=== PATIENT | female | born 2000 | race Caucasian/White ===

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

== ENCOUNTER 2020-10-24 18:32 | Emergency (ER) | payer MEDICAID, SELFPAY ==
[2020-10-24 19:21] VITALS: BP 125/85; PULSE 74; RESP 12; O2SAT 99
--- NOTE | 2020-10-24 19:39 | ED.GENADUL_ITS ---
Discharge Plan Disposition Patient Disposition: HOME Condition: Stable Discharge Details Clinical Impression: Pain, dental Primary Care Provider: Julio Hitchcock ED Provider: Lenin Marquez Home Meds and New Rx's Prescriptions: New penicillin V potassium 500 mg tablet 500 mg PO QID Qty: 28 RF: 0 Continued Nexplanon 68 mg implant 1 implant SBD ONCE RF: 0 fluoxetine 20 mg capsule 20 mg PO DAILY Qty: 60 RF: 2 fluoxetine 10 mg capsule 10 mg PO DAILY Qty: 60 RF: 2 albuterol sulfate [ProAir HFA] 90 mcg/actuation HFA aerosol inhaler 2 puff Inhalation Q4H PRN Qty: 1 RF: 2 albuterol sulfate 2.5 mg /3 mL (0.083 %) solution for nebulization 2.5 mg Inhalation Q4H PRN Qty: 1 RF: 2 Discharge Instructions Additional Instructions: follow up with a dentist as soon as possible you can take 1000mg tylenol and 600mg ibuprofen every 6 hours for pain as needed if you feel more ill, have fevers, or inability to swallow liquids return to the emergency department Medical Decision Making 19 yo female who states last April she had a right upper tooth infection treated with penicillin and did not follow up for tooth extraction with her dentist comes in with 2 days of recurrent upper right posterior molar pain. Denies fevers or difficulty swallowing. She is speaking normally, no submandibular swelling, normal oropharynx with midline uvula, no pain over hyoid or restricted neck movements. She has an eroded posterior upper right tooth that is tender when it is touched. No swelling to suggest abscess currently. Suspect pulpitis and will start on penicillin and have her follow up with dentist. No findings to suggest ludwigs, retropharyngeal abscess, peritonsillar abscess. Discussed return precautions and she understood them and agrees with the plan Differential Diagnosis Differential Diagnosis: caries, abscess, pulpitis HPI General Mode of arrival: ambulatory . Date/Time Provider Initiated Documentation: 10/24/20 19:38 . Limitations to Documentation: no limitations . Information obtained by: patient . History of Present Illness 19 year old F presents to the emergency department with the chief complaint of tooth pain, described as moderate, Quality is described as aching, and is localized to the mouth. Patient reports no radiation. Patient started experiencing this day(s) (2) and it has been constant. No relieving factors improve symptom(s), No exacerbating factors reported . Patient notes no other symptoms.. Patient did receive the following treatments prior to arrival, none Related Data Home Medications Medication Instructions Recorded Confirmed albuterol sulfate 2.5 mg INHALATION Q4H PRN #1 ml 05/09/18 10/24/20 albuterol sulfate 90 mcg/actuation 2 puff INHALATION Q4H PRN #1 05/09/18 10/24/20 aerosol inhaler inhaler etonogestrel 68 mg subdermal 1 implant SBD ONCE 10/15/18 10/24/20 implant fluoxetine 10 mg capsule 10 mg PO DAILY #60 cap 09/21/19 10/24/20 fluoxetine 20 mg capsule 20 mg PO DAILY #60 cap 09/21/19 10/24/20 penicillin V potassium 500 mg PO QID #28 tab 10/24/20 Previous Rx's Medication Instructions Recorded fluoxetine 10 mg capsule 10 mg PO DAILY #60 cap 09/21/19 fluoxetine 20 mg capsule 20 mg PO DAILY #60 cap 09/21/19 penicillin V potassium 500 mg PO QID #28 tab 10/24/20 Allergies Allergy/AdvReac Type Severity Reaction Status Date / Time No Known Allergies Allergy Verified 10/24/20 19:25 General Stated Complaint: DentalOral JULIANNE: 4 Review of Systems All systems reviewed & are unremarkable except as noted in HPI and below Constitutional Constitutional: Denies chills, Denies fever(s) and Denies weakness Cardiovascular Cardiovascular: Denies chest pain and Denies dyspnea Respiratory Respiratory: Denies cough and Denies dyspnea Gastrointestinal Gastrointestinal: Denies abdominal pain, Denies nausea and Denies vomiting Musculoskeletal Musculoskeletal: Denies joint swelling Neurologic Neurologic: Denies weakness PENDING SALE TO [facility] Medical History (Updated 10/24/20 @ 19:40 by Lenin Marquez MD) Fracture of fifth finger, left, closed Intermittent asthma triggers - exercise Migraine with aura Family History Other Essential hypertension paternal H/O blood clots PGM-from abd- caused stroke Diabetes PGM Heart disease paternal Hyperlipidemia paternal Mental disorder paternal-anxiety/depression Stroke PGM Asthma PGF Mother Migraines Mental disorder depression/anxiety Asthma outgrown Father Essential hypertension Substance abuse Heart disease Hyperlipidemia Mental disorder Depression/anxiety Myocardial infarction Asthma Social History Smoking/Tobacco Use Status: Never Smoking risk assessment performed?: Yes Alcohol Intake: never Drug use: Never Substance use type: does not use Adopted: No Foster care: No Do you feel safe at home: Yes Do you feel safe in your relationship?: Yes Female Reproductive History Menstrual control method: implanted (Nexplanon inserted by [employer] TIMMONS PBS=[id number] EXP=02/05/2021) Exam Const General: no acute distress Orientation: alert HENMT Head: normal to inspection Ears: external ears normal General nose exam: external nose normal Mouth: moist mucous membranes Eyes General: appearance normal, both eyes and all related structures Neck Neck: normal visual inspection Resp Effort & Inspection: normal respiratory effort and able to speak in complete sentences Cardio Rate: regular rate Skin General skin exam: no rashes or lesions noted Neuro General: patient alert and patient oriented x3 Extrem General: normal to inspection Psych Mental Status: mental status grossly normal Course Vital Signs Vital signs: Vital Signs Pulse 74 10/24/20 19:21 Respiratory Rate 12 10/24/20 19:21 Blood Pressure 125/85 10/24/20 19:21 Pulse Oximetry 99 10/24/20 19:21 Pulse 74 10/24/20 19:21 Respiratory Rate 12 10/24/20 19:21 Respiratory Effort Non-Labored 10/24/20 19:23 Blood Pressure 125/85 10/24/20 19:21 Blood Pressure Position Sitting 10/24/20 19:21 Pulse Oximetry 99 10/24/20 19:21 Oxygen Delivery Method Room Air 10/24/20 19:21 Oxygen Flow Rate 0 10/24/20 19:21 Pain Level 8 10/24/20 19:25
[2020-10-24] MEDS: Penicillin V POTASSIUM 500 MG TAB PO (19:44)
[2020-10-24] MEDS: Acetaminophen 500 MG TAB 1000 MG PO (19:44)
== END 2020-10-24 19:45 | disposition home or self-care (01) ==
PROVIDERS: Emergency Provider Emergency Medicine; PCP Pediatrics
DX: K08.89 Other specified disorders of teeth and supporting structures (principal)
CPT/HCPCS: 99283

== ENCOUNTER 2021-05-16 05:42 | Emergency (ER) | payer MEDICAID, SELFPAY ==
[2021-05-16 05:47] VITALS: BP 137/102; PULSE 99; RESP 18; TEMP 36.4; O2SAT 100
--- NOTE | 2021-05-16 06:10 | ED.GENADUL_ITS ---
Discharge Plan Disposition Patient Disposition: HOME Condition: Improving Discharge Details Clinical Impression: Dehydration Primary Care Provider: Chilango Corbett ED Provider: Kostas Kate Home Meds and New Rx's Prescriptions: Continued Nexplanon 68 mg implant 1 implant SBD ONCE RF: 0 fluoxetine 20 mg capsule 20 mg PO DAILY Qty: 60 RF: 2 fluoxetine 10 mg capsule 10 mg PO DAILY Qty: 60 RF: 2 albuterol sulfate [ProAir HFA] 90 mcg/actuation HFA aerosol inhaler 2 puff Inhalation Q4H PRN Qty: 1 RF: 2 albuterol sulfate 2.5 mg /3 mL (0.083 %) solution for nebulization 2.5 mg Inhalation Q4H PRN Qty: 1 RF: 2 fluconazole [Diflucan] 150 mg tablet 150 mg PO ONCE Qty: 2 RF: 0 No Action penicillin V potassium 500 mg tablet 500 mg PO QID Qty: 28 RF: 0 Discharge Instructions Instructions: Dehydration (ED) Additional Instructions: Continue small, frequent sips of fluids to maintain good hydration. Off work if needed today. Resume a bland diet and may progress as tolerated. Return to the emergency department for any acute concerns. Medical Decision Making 20-year-old female presents with abdominal cramps, loose watery stool began after she took 3 laxatives following 3 days of constipation. She had a significant crampy abdominal pain at home with associated subjective chills. She therefore presented to the ER. Patient is afebrile, has a resting pulse of 100 and a benign abdominal exam.. Differential diagnosis includes dehydration due to GI losses, bowel cramps. Patient IV access established, given fluid bolus and referred for screening labs and x-ray. Patient CBC is unremarkable, chemistries are reassuring but do note discrete anion gap of 11. BUN 12 creatinine 0.7. Urinalysis notes specific gravity greater than 1.03 and ketones present. Patient with dehydration and volume loss. Discussed with her ongoing home management. She is stable and appropriate for discharge home at this time. HPI General Mode of arrival: ambulatory . Date/Time Provider Initiated Documentation: 05/16/21 05:58 . Limitations to Documentation: no limitations . Information obtained by: patient and family . History of Present Illness 20 year old F presents to the emergency department with the chief complaint of Diarrhea, feels weak, crampy abdominal pain, described as moderate, and is localized to the abdomen. Patient reports no radiation. Patient started experiencing this hour(s) and it has been intermittent and now resolved. No relieving factors improve symptom(s), No exacerbating factors reported . Patient notes loss of appetite, malaise, nausea/vomiting and weakness. Patient did receive the following treatments prior to arrival, none Related Data Home Medications Medication Instructions Recorded Confirmed albuterol sulfate 2.5 mg INHALATION Q4H PRN #1 ml 05/09/18 10/24/20 albuterol sulfate 90 mcg/actuation 2 puff INHALATION Q4H PRN #1 05/09/18 05/16/21 aerosol inhaler inhaler etonogestrel 68 mg subdermal 1 implant SBD ONCE 10/15/18 05/16/21 implant fluoxetine 10 mg capsule 10 mg PO DAILY #60 cap 09/21/19 05/16/21 fluoxetine 20 mg capsule 20 mg PO DAILY #60 cap 09/21/19 05/16/21 penicillin V potassium 500 mg PO QID #28 tab 10/24/20 fluconazole 150 mg tablet 150 mg PO ONCE #2 tab 02/28/21 Previous Rx's Medication Instructions Recorded fluoxetine 10 mg capsule 10 mg PO DAILY #60 cap 09/21/19 fluoxetine 20 mg capsule 20 mg PO DAILY #60 cap 09/21/19 penicillin V potassium 500 mg PO QID #28 tab 10/24/20 fluconazole 150 mg tablet 150 mg PO ONCE #2 tab 02/28/21 Allergies Allergy/AdvReac Type Severity Reaction Status Date / Time No Known Allergies Allergy Verified 10/24/20 19:25 General Stated Complaint: Nausea/Vomit/Diar JULIANNE: 4 Review of Systems Narrative: [place] constipated over the weekend, took laxatives. Feels subjective chills. 8 systems reviewed and otherwise negative [facility] Active Problem List (Updated 05/16/21 @ 06:57 by Kostas Kate MD) Pain, dental (Acute) Dehydration (Acute) Excessive tearing (Chronic) Normal weight (Acute 11/10/14) Routine physical examination (Acute 02/12/12) Mild intermittent asthma, uncomplicated (Acute 08/21/16) Heart murmur (Acute 11/21/01) Headache (Acute 02/12/12) Encounter for Depo-Provera contraception (Acute 11/07/17) Asthma (Acute 02/03/13) Medical History (Updated 05/16/21 @ 06:57 by Kostas Kate MD) Fracture of fifth finger, left, closed Intermittent asthma triggers - exercise Migraine with aura Family History Other Essential hypertension paternal H/O blood clots PGM-from abd- caused stroke Diabetes PGM Heart disease paternal Hyperlipidemia paternal Mental disorder paternal-anxiety/depression Stroke PGM Asthma PGF Mother Migraines Mental disorder depression/anxiety Asthma outgrown Father Essential hypertension Substance abuse Heart disease Hyperlipidemia Mental disorder Depression/anxiety Myocardial infarction Asthma Social History Smoking/Tobacco Use Status: Never Smoking risk assessment performed?: Yes Alcohol Intake: never Drug use: Never Substance use type: does not use Adopted: No Foster care: No Do you feel safe at home: Yes Do you feel safe in your relationship?: Yes Female Reproductive History Menstrual control method: implanted (Nexplanon inserted by [employer] TIMMONS ULG=[id number] EXP=02/05/2021) Exam Narrative Exam Narrative: GEN: awake, alert, oriented 3. Pleasant, well groomed, interactive. HEAD: Normocephalic, atraumatic ENT: Mucous membranes dry, oropharynx unremarkable, External ear exam unremarkable EYES: PERRL, EOMI NECK: Full ROM, no BECKY, no menigismus CHEST/RESP: Nontender, clear to auscultation bilateral, no wheeze/rhonchi/rales CARDIOVASCULAR: Regular and tachycardic, no murmur, rub roddy. 2+ Rad pulse bilateral ABDOMEN: Soft, nontender, no mass. +Bowel sounds EXT: Full ROM, no edema, no rash Neuro: Grossly normal neurologic exam, conversant, interactive. Psych: Speech fluent, thoughts congruent, affect normal Course Vital Signs Vital signs: Vital Signs Temperature 36.4 C L 05/16/21 05:47 Pulse 99 H 05/16/21 05:47 Respiratory Rate 18 05/16/21 05:47 Blood Pressure 137/102 H 05/16/21 05:47 Pulse Oximetry 100 05/16/21 05:47 Temperature 36.4 C L 05/16/21 05:47 Temperature Source Tympanic 05/16/21 05:47 Pulse 99 H 05/16/21 05:47 Respiratory Rate 18 05/16/21 05:47 Respiratory Effort 05/16/21 05:53 Blood Pressure 137/102 H 05/16/21 05:47 Blood Pressure Position Sitting 05/16/21 05:47 Pulse Oximetry 100 05/16/21 05:47 Oxygen Delivery Method Room Air 05/16/21 05:47 Oxygen Flow Rate 0 05/16/21 05:47 Pain Level 0 05/16/21 05:47
--- NOTE | 2021-05-16 06:15 | DI.RAD_ITS ---
Exam(s) XR ABDOMEN FLAT UPRIGHT EXAM: XR ABDOMEN FLAT UPRIGHT CLINICAL HISTORY: abdominal pain, cramps TECHNIQUE: COMPARISON: No exams were available for comparison FINDINGS: Two views were obtained. No free intraperitoneal air seen. Bowel gas pattern is within normal limit s. No gross organomegaly. IMPRESSION: No evidence of acute process. RADIATION DOSE DELIVERED: Total DLP
[2021-05-16 06:29] LABS: Abs Immature Grans 0.04 10^3/uL (0.0-0.06); Absolute Basophil Count 0.02 10^3/uL (0.0-0.2); Absolute Eosinophil Count 0.01 10^3/uL (0.0-0.7); Absolute Lymphocyte Count 0.87 10^3/uL (1.2-3.4); Absolute Neutrophil Count 6.34 10^3/uL (1.2-6.7); Basophils % 0.3; Eosinophils % 0.1; HCT 45.9 % (36.0-46.0); HGB 14.8 g/dL (11.2-15.7); Immature Grans % 0.5; Lymphocytes % 10.9; MCH 28.9 pg (27.0-33.0); MCHC 32.2 % (32.0-36.0); MCV 89.6 fL (80-95); Monocytes % 8.8; Neutrophils % 79.4; Nucleated RBC 0 %; Platelet Count 240 10^3/uL (130-400); RBC 5.12 10^6/uL (3.93-5.22); RDW 11.9 % (11.7-14.6); RDW-SD 39.4 fL; WBC 7.98 10^3/uL (4.4-10.8)
[2021-05-16 06:29] LABS: Bilirubin Negative (Negative); Blood Small (Negative); Clarity Clear (Clear); Glucose Negative (Negative); Ketones 15 mg/dL (Negative); Leukocyte Esterase Negative (Negative); Nitrite Negative (Negative); Specific Gravity >= 1.030 (1.005-1.025); Urobilinogen 0.2 EU/dL (Up TO 0.2); pH 5.5 (5-8)
[2021-05-16] MEDS: Normal Saline 1,000 ML 1000 ML IV (06:30)
[2021-05-16 06:36] LABS: Epithelial Cells Many HPF (Negative); WBC 0-2 HPF (0-5)
[2021-05-16 06:37] LABS: Bacteria Moderate HPF (Negative); C & S Indicated? No/Sq. Contamination; Casts Negative LPF (Negative); Crystals Negative HPF (Negative); Mucus Trace (Negative)
[2021-05-16 06:40] LABS: ALT 39 U/L (14-59); AST 16 U/L (15-37); Albumin 3.8 g/dL (3.4-5.0); Alkaline Phosphatase 86 U/L (46-116); Anion Gap 11.3 mmol/L (3-11); BUN 12 mg/dL (7-18); Bilirubin, Total 0.4 mg/dL (0.2-1.0); CO2 22.7 mmol/L (21.0-32.0); CREATININE 0.7 mg/dL (0.55-1.02); Calcium 9.1 mg/dL (8.5-10.1); Chloride 103 mmol/L (98-107); Glucose 99 mg/dL (74-106); Magnesium 1.8 mg/dL (1.8-2.4); Potassium 4.1 mmol/L (3.5-5.1); Sodium 137 mmol/L (136-145); Total Protein 8.3 g/dL (6.4-8.2)
--- NOTE | 2021-05-16 06:55 | DI.VRAD_ITS ---
PROCEDURE INFORMATION: Exam: XR Abdomen Exam date and time: 05/16/2021 6:21 AM Age: 20 years old Clinical indication: Abdominal pain; Other: Cramps TECHNIQUE: Imaging protocol: XR of the abdomen. Views: 2 Views. Upright and supine views. COMPARISON: No relevant prior studies available. FINDINGS: Gastrointestinal tract: Normal. No bowel dilation. Intraperitoneal space: Normal. No free air. Bones/joints: Unremarkable for age. IMPRESSION: No acute findings. Dictated and Authenticated by: Kosta Norwood MD. Ordering:PHYLLIS Kenyon MD
[2021-05-16 07:25] VITALS: BP 115/72; PULSE 85; RESP 16; TEMP 36.4; O2SAT 100
== END 2021-05-16 07:24 | disposition home or self-care (01) ==
PROVIDERS: Emergency Provider Emergency Medicine; PCP Pediatrics
DX: E86.0 Dehydration (principal); R10.9 Unspecified abdominal pain
CPT/HCPCS: 80053; 81025; 96360; 96361; 99284; 74019; 81003; 81015; 83735; 85025; 99283

== ENCOUNTER 2021-08-09 19:39 | Emergency (ER) | payer MEDICAID, SELFPAY ==
[2021-08-09] VITALS (90 sets, daily range): BP systolic 98–108; BP diastolic 43–62; PULSE 76–110; RESP 11–35; TEMP 36.5; O2SAT 98–100
--- NOTE | 2021-08-09 19:45 | RT.EKG_ITS ---
APPROVED REPORT Exam: Resting ECG Reason for Exam: dizziness Patient Location: E HR:109 bpm ECG Measurements Heart Rate 109 AXIS MO 159 P 39 QRSd 80 QRS 88 QT 314 T 15 QTc 423 Conclusion Sinus tachycardia with irregular rate...V-rate 96-127, variation>10%. Sinus w/ rate variation. No STEMI. I have reviewed and interpreted ECG and agree with software generated interpretation.
[2021-08-09] MEDS: Normal Saline 1,000 ML 1000 ML IV (20:09)
[2021-08-09] MEDS: ACETAMINOPHEN 1,000 MG/100 ML BTL 400 MG IVPB (20:29)
[2021-08-09] MEDS: Ondansetron 4 MG/2 ML VIAL IVP (20:30)
[2021-08-09] MEDS: Ketorolac 30 MG/ML VIAL IVP (20:31)
[2021-08-09 20:38] LABS: Abs Immature Grans 0.04 10^3/uL (0.0-0.06); Absolute Basophil Count 0.03 10^3/uL (0.0-0.2); Absolute Lymphocyte Count 0.47 10^3/uL (1.2-3.4); Absolute Monocyte Count 0.89 10^3/uL (0.1-0.8); Basophils % 0.2; HCT 44.7 % (36.0-46.0); HGB 14.6 g/dL (11.2-15.7); Immature Grans % 0.3; MCHC 32.7 % (32.0-36.0); MCV 88.9 fL (80-95); MPV 9.8 fL (8.0-11.0); Monocytes % 5.6; Neutrophils % 90.9; Nucleated RBC 0 %; Platelet Count 292 10^3/uL (130-400); RBC 5.03 10^6/uL (3.93-5.22); RDW 11.9 % (11.7-14.6); RDW-SD 38.5 fL; WBC 15.81 10^3/uL (4.4-10.8)
[2021-08-09 20:39] LABS: Absolute Neutrophil Count 14.37 10^3/uL (1.2-6.7)
--- NOTE | 2021-08-09 20:39 | ED.GENADUL_ITS ---
Discharge Plan Disposition Patient Disposition: HOME Condition: Stable Discharge Details Clinical Impression: Abdominal pain, vomiting, and diarrhea Primary Care Provider: Alysha Leigh ED Provider: Noelle Weber Home Meds and New Rx's Prescriptions: Continued Nexplanon 68 mg implant 1 implant SBD ONCE 0RF fluoxetine 20 mg capsule 20 mg PO DAILY Qty: 60 2RF Rx Instructions: take one capsule once a day. may add fluoxetine 10 mg after 2 weeks if needed fluoxetine 10 mg capsule 10 mg PO DAILY Qty: 60 2RF Rx Instructions: take one capsule once a day along with 20 mg capsule albuterol sulfate [ProAir HFA] 90 mcg/actuation HFA aerosol inhaler 2 puff Inhalation Q4H PRN Qty: 1 2RF Rx Instructions: 2 puffs with spacer q4hr prn cough/wheeze albuterol sulfate 2.5 mg /3 mL (0.083 %) solution for nebulization 2.5 mg Inhalation Q4H PRN Qty: 90 0RF Rx Instructions: 1 vial via nebulizer q4 hrs prn cough/wheeze Discharge Instructions Instructions: Acute Nausea and Vomiting (ED), Acute Diarrhea (ED), Abdominal Pain (ED) Additional Instructions: Your lab work today is reassuring. Your white blood cell count was elevated which may be a stress response. It is reassuring that you have no fever and your symptoms have improved. Drink plenty of fluids and get plenty of rest. Take the Zofran as needed and directed for nausea and vomiting. Follow-up with your primary care doctor in 1 week. Return to the emergency department with any worsening or new concerning symptoms such as fever, persistent vomiting, worsening pain for reevaluation and for consideration for imaging at that time. You were tested for Covid today. Please quarantine until your result is available and if negative. Stand Alone Forms: PENDING COVID-19 TESTING Discharge Data Discharge Date/Time-TO BE ENTERED AT DEPARTURE: 08/09/21 23:00 Discharge Physician: Noelle Weber Medical Decision Making 20-year-old female presents with vomiting, diarrhea and abdominal pain since this morning. Heart rate elevated in the 110s. Blood pressure mildly low at 108/56. Patient had dry heaving upon arrival and was given a dose of Zofran IV. She denies any pain at present. She initially appeared in distress while dry heaving but now appears much more comfortable. Her abdomen is soft and nontender. Differential diagnosis includes gastroenteritis, UTI, electrolyte abnormality, dehydration, viral syndrome, Covid. As pt has vomiting and diarrhea, presentation does not appear c/w ovarian torsion. She has no abdominal pain and her abdomen is nontender, do not see indication for imaging and patient is agreeable as she does not want the radiation if possible. We will place an IV, bolus IV fluids, screening labs, urinalysis and give a dose of IV Tylenol, Toradol and reassess. Labs reviewed and note a white blood cell count of 15 which may be a stress response. No bands. Normal electrolytes. Anion gap minimally elevated at 11.4. Lipase normal. Patient reassessed and she states she feels much better. She was able to drink fluids and eat crackers and denies any nausea, pain or diarrhea. Patient is requesting to go home. She was given a Zofran bottle to go for home. Advised on the importance of drinking plenty of fluids and getting plenty of rest. Advised to follow up with the primary care doctor for re-evaluation. Usual and customary return precautions given prior to discharge. Medical Records Medical records reviewed: Yes I reviewed the patient's medical records. Lab Data Lab results reviewed: Yes I reviewed the patient's lab results. Labs: 08/09/21 21:50 Urine - Reflex from Ua Urine Culture - Final Gram Positive Rossi,Mixed Laboratory Tests Range/Units 08/09/21 08/09/21 08/09/21 20:30 20:30 20:33 WBC (4.4-10.8) 10^3/uL 15.81 H RBC (3.93-5.22) 10^6/uL 5.03 Hgb (11.2-15.7) g/dL 14.6 Hct (36.0-46.0) % 44.7 MCV (80-95) fL 88.9 MCH (27.0-33.0) pg 29.0 MCHC (32.0-36.0) % 32.7 RDW (11.7-14.6) % 11.9 Plt Count (130-400) 10^3/uL 292 MPV (8.0-11.0) fL 9.8 Immature Gran % 0.3 Neutrophils % 90.9 Lymphocytes % 3.0 Monocytes % 5.6 Eosinophils % 0.0 Basophils % 0.2 Nucleated RBC % % 0 Absolute Neutrophils (1.2-6.7) 10^3/uL 14.37 H Absolute Lymphocytes (1.2-3.4) 10^3/uL 0.47 L Absolute Monocytes (0.1-0.8) 10^3/uL 0.89 H Absolute Eosinophils (0.0-0.7) 10^3/uL 0.00 Absolute Basophils (0.0-0.2) 10^3/uL 0.03 Sodium (136-145) mmol/L 137 Potassium (3.5-5.1) mmol/L 4.0 Chloride (98-107) mmol/L 103 Carbon Dioxide (21.0-32.0) mmol/L 22.6 Anion Gap (3-11) mmol/L 11.4 H BUN (7-18) mg/dL 15 Creatinine (0.55-1.02) mg/dL 0.8 Estimated GFR/1.73 m2 (mL/min/1.73m2) >= 60.00 Glucose (74-106) mg/dL 98 Calcium (8.5-10.1) mg/dL 9.3 Total Bilirubin (0.2-1.0) mg/dL 0.6 AST (15-37) U/L 15 ALT (14-59) U/L 26 Alkaline Phosphatase (46-116) U/L 75 Total Protein (6.4-8.2) g/dL 8.4 H Albumin (3.4-5.0) g/dL 4.2 Lipase (73-393) U/L 32 Urine Color (Yellow) Urine Clarity (Clear) Urine pH (5-8) Ur Specific [place] (1.005-1.025) Urine Protein (Negative) mg/dL Urine Ketones (Negative) mg/dL Urine Blood (Negative) Urine Nitrite (Negative) Urine Bilirubin (Negative) Urine Urobilinogen (Up TO 0.2) EU/dL Ur Leukocyte Esterase (Negative) Urine RBC (0-2) HPF Urine WBC (0-5) HPF Ur Epithelial Cells (Negative) HPF Urine Crystals (Negative) HPF Urine Bacteria (Negative) HPF Urine Casts (Negative) LPF Urine Mucus (Negative) Ur Culture Indicated? Urine Glucose (Negative) mg/dL SARS-CoV-2 (PCR) (Negative) Negative Nasopharyn COVID-19 PCR Not Applicable Ref Test Perform Site [id number] [facility] Lab Range/Units 08/09/21 21:50 WBC (4.4-10.8) 10^3/uL RBC (3.93-5.22) 10^6/uL Hgb (11.2-15.7) g/dL Hct (36.0-46.0) % MCV (80-95) fL MCH (27.0-33.0) pg MCHC (32.0-36.0) % RDW (11.7-14.6) % Plt Count (130-400) 10^3/uL MPV (8.0-11.0) fL Immature Gran % Neutrophils % Lymphocytes % Monocytes % Eosinophils % Basophils % Nucleated RBC % % Absolute Neutrophils (1.2-6.7) 10^3/uL Absolute Lymphocytes (1.2-3.4) 10^3/uL Absolute Monocytes (0.1-0.8) 10^3/uL Absolute Eosinophils (0.0-0.7) 10^3/uL Absolute Basophils (0.0-0.2) 10^3/uL Sodium (136-145) mmol/L Potassium (3.5-5.1) mmol/L Chloride (98-107) mmol/L Carbon Dioxide (21.0-32.0) mmol/L Anion Gap (3-11) mmol/L BUN (7-18) mg/dL Creatinine (0.55-1.02) mg/dL Estimated GFR/1.73 m2 (mL/min/1.73m2) Glucose (74-106) mg/dL Calcium (8.5-10.1) mg/dL Total Bilirubin (0.2-1.0) mg/dL AST (15-37) U/L ALT (14-59) U/L Alkaline Phosphatase (46-116) U/L Total Protein (6.4-8.2) g/dL Albumin (3.4-5.0) g/dL Lipase (73-393) U/L Urine Color (Yellow) Yellow Urine Clarity (Clear) Clear Urine pH (5-8) 6.0 Ur Specific [place] (1.005-1.025) >= 1.030 H Urine Protein (Negative) mg/dL Negative Urine Ketones (Negative) mg/dL 40 H Urine Blood (Negative) Trace-intact H Urine Nitrite (Negative) Negative Urine Bilirubin (Negative) Negative Urine Urobilinogen (Up TO 0.2) EU/dL 0.2 Ur Leukocyte Esterase (Negative) Negative Urine RBC (0-2) HPF 0-2 Urine WBC (0-5) HPF 0-2 Ur Epithelial Cells (Negative) HPF Few Urine Crystals (Negative) HPF Negative Urine Bacteria (Negative) HPF Few Urine Casts (Negative) LPF Negative Urine Mucus (Negative) Moderate Ur Culture Indicated? Yes Urine Glucose (Negative) mg/dL Negative SARS-CoV-2 (PCR) (Negative) Nasopharyn COVID-19 PCR Ref Test Perform Site HPI General Mode of arrival: ambulatory . Date/Time Provider Initiated Documentation: 08/09/21 19:51 . Limitations to Documentation: no limitations . Information obtained by: patient . HPI Narrative: Patient is a 20-year-old female with a history of asthma who presents for vomiting, diarrhea and abdominal pain since this morning. Patient states she has not eaten anything since 830 this morning. She states she vomited multiple times over 1 hour this evening and has had multiple episodes of watery brown diarrhea today. She states she took Zofran a couple hours ago at home with some relief but has still had some dry heaving, nausea and lower abdominal pain since then She describes the lower abdominal pain as intermittent and occurring just prior to dry heaving and is sharp and located in the lower abdomen. She denies any abdominal pain at present. She states the pain is 4/10 at its worst. She has not taken any ibuprofen or Tylenol today. She states she has been fully vaccinated for COVID with 2 vaccines but has not yet received a booster. He states she did have Covid earlier last month but has fully recovered and states this does not appear consistent with that. She denies any other recent illness, recent antibiotics, new medications or known sick contacts. She states she is sexually active with one partner and does not use protection but does have Nexplanon. She denies any known . Related Data Home Medications Medication Instructions Recorded Confirmed albuterol sulfate 90 mcg/actuation 2 puff INHALATION Q4H PRN #1 05/09/18 08/09/21 aerosol inhaler (ProAir HFA) inhaler etonogestrel 68 mg subdermal 1 implant SBD ONCE 10/15/18 08/09/21 implant (Nexplanon) fluoxetine 10 mg capsule 10 mg PO DAILY #60 cap 09/21/19 08/09/21 fluoxetine 20 mg capsule 20 mg PO DAILY #60 cap 09/21/19 08/09/21 albuterol sulfate 2.5 mg (3 mL) INHALATION Q4H PRN 06/27/21 08/09/21 #90 ml Previous Rx's Medication Instructions Recorded fluoxetine 10 mg capsule 10 mg PO DAILY #60 cap 09/21/19 fluoxetine 20 mg capsule 20 mg PO DAILY #60 cap 09/21/19 albuterol sulfate 2.5 mg (3 mL) INHALATION Q4H PRN 06/27/21 #90 ml Allergies Allergy/AdvReac Type Severity Reaction Status Date / Time No Known Allergies Allergy Verified 10/24/20 19:25 General Stated Complaint: GenMedical JULIANNE: 2 Review of Systems All systems reviewed & are unremarkable except as noted in HPI and below Constitutional Constitutional: Denies chills, Denies excessive sweating, Denies fatigue, Denies fever(s), Denies weakness and Denies weight loss Eyes Eyes: Reports system reviewed and no additional complaints, except as documented and Denies blurry vision ENT Ears, Nose, Mouth, and Throat: Denies vertigo, Denies dizziness, Denies otalgia, Denies nasal congestion, Denies sore throat and Denies throat swelling Cardiovascular Cardiovascular: Denies chest pain, Denies syncope, Denies rapid heart rate and Denies dyspnea Respiratory Respiratory: Denies chest congestion, Denies cough, Denies pain on inspiration and Denies dyspnea Gastrointestinal Gastrointestinal: Reports abdominal pain, Reports diarrhea and Reports vomiting Genitourinary Genitourinary: Denies hematuria, Denies dysuria and Denies flank pain Musculoskeletal Musculoskeletal: Denies back pain and Denies joint swelling Integumentary/Breasts Skin/Breast: Denies lesions and Denies rash Neurologic Neurologic: Denies behavioral changes, Denies confusion, Denies vertigo, Denies dizziness, Denies syncope, Denies localized weakness and Denies weakness Psychiatric Psychiatric: Denies behavioral changes, Denies confusion and Denies depression Endocrine Endocrine: Denies excessive sweating and Denies fatigue Hematologic/Lymphatic Hematologic/Lymphatic: Denies easy bruising and Denies lymphadenopathy Allergic/Immunologic Allergic/Immunologic: Denies throat swelling PFSH All Active Problems (Updated 08/09/21 @ 22:35 by Noelle Weber DO) Pain, dental (Acute) Dehydration (Acute) Abdominal pain, vomiting, and diarrhea (Acute) Excessive tearing (Chronic) Normal weight (Acute 11/10/14) Routine physical examination (Acute 02/12/12) Mild intermittent asthma, uncomplicated (Acute 08/21/16) exercise trigger Heart murmur (Acute 11/21/01) Still's murmur- nl EKG Headache (Acute 02/12/12) Encounter for Depo-Provera contraception (Acute 11/07/17) tolerating depo provera contraception may have next injection today then follow up 3 months Asthma (Acute 02/03/13) intermitent- triggers-exercise Medical History (Updated 08/09/21 @ 22:35 by Noelle Weber DO) Fracture of fifth finger, left, closed Intermittent asthma triggers - exercise Migraine with aura Family History Other Essential hypertension paternal H/O blood clots PGM-from abd- caused stroke Diabetes PGM Heart disease paternal Hyperlipidemia paternal Mental disorder paternal-anxiety/depression Stroke PGM Asthma PGF Mother Migraines Mental disorder depression/anxiety Asthma outgrown Father Essential hypertension Substance abuse Heart disease Hyperlipidemia Mental disorder Depression/anxiety Myocardial infarction Asthma Social History Smoking/Tobacco Use Status: Never Smoking risk assessment performed?: Yes Alcohol Intake: current Alcohol Intake frequency: a few times a week Alcohol type: beer Drug use: Never Substance use type: does not use Adopted: No Foster care: No Do you feel safe at home: Yes Do you feel safe in your relationship?: Yes Female Reproductive History Menstrual control method: implanted (Nexplanon inserted by [employer] TIMMONS MKW=[id number] EXP=02/05/2021) Exam Const General: cooperative and healthy appearing Orientation: alert, awake and oriented x3 HENMT Head: normal to inspection Ears: hearing grossly normal bilaterally, external ears normal and TM's normal bilaterally General nose exam: external nose normal Face and sinus: normal facial exam Mouth: oral mucosae normal Teeth and gingiva: dentition normal Throat: posterior oropharynx normal Eyes General: appearance normal, both eyes and all related structures Eyelids: eyelids normal Pupils: PERRL EOM: EOM intact bilaterally Neck Neck: normal visual inspection Lymphatic: no lymphadenopathy noted Chest Chest: normal inspection of the chest Resp Effort & Inspection: normal respiratory effort and able to speak in complete sentences Auscultation: clear to auscultation bilaterally Cardio Rate: regular rate Rhythm: regular rhythm GI Inspection: normal to inspection Palpation: soft, not firm, no guarding, no hepatosplenomegaly, no masses and nontender Auscultation: normal bowel sounds Back/Spine/Pelvis Back: no CVA tenderness Skin General skin exam: no rashes or lesions noted Neuro General: patient alert, patient awake and patient oriented x3 Cognition: normal cognition Speech: speech normal Gait: normal gait Motor: muscle tone normal throughout Sensory Exam: no sensory deficits noted Extrem General: normal to inspection, full ROM and capillary refill normal Psych Appearance: grossly normal Mental Status: mental status grossly normal Speech and Movement: speech and movement normal Affect: normal affect Thought Process: normal Course Vital Signs Vital signs: Vital Signs Temperature 97.7 F 08/09/21 19:45 Pulse 110 H 08/09/21 19:45 Respiratory Rate 20 08/09/21 19:45 Blood Pressure 108/56 L 08/09/21 19:45 Pulse Oximetry 99 08/09/21 19:45 Temperature 97.7 F 08/09/21 19:45 Temperature Source Oral 08/09/21 19:45 Pulse 110 H 08/09/21 19:45 Respiratory Rate 20 08/09/21 19:45 Blood Pressure 108/56 L 08/09/21 19:45 Blood Pressure Position Sitting 08/09/21 19:45 Pulse Oximetry 99 08/09/21 19:45 Oxygen Delivery Method Room Air 08/09/21 19:45 Oxygen Flow Rate 0 08/09/21 19:45 Pain Level 0 08/09/21 20:31 Lab/Test Results Lab/Test Results: Laboratory Tests Range/Units 08/09/21 20:30 WBC (4.4-10.8) 10^3/uL 15.81 H RBC (3.93-5.22) 10^6/uL 5.03 Hgb (11.2-15.7) g/dL 14.6 Hct (36.0-46.0) % 44.7 MCV (80-95) fL 88.9 MCH (27.0-33.0) pg 29.0 MCHC (32.0-36.0) % 32.7 RDW (11.7-14.6) % 11.9 Plt Count (130-400) 10^3/uL 292 MPV (8.0-11.0) fL 9.8 Immature Gran % 0.3 Neutrophils % 90.9 Lymphocytes % 3.0 Monocytes % 5.6 Eosinophils % 0.0 Basophils % 0.2 Nucleated RBC % % 0 Absolute Neutrophils (1.2-6.7) 10^3/uL 14.37 H Absolute Lymphocytes (1.2-3.4) 10^3/uL 0.47 L Absolute Monocytes (0.1-0.8) 10^3/uL 0.89 H Absolute Eosinophils (0.0-0.7) 10^3/uL 0.00 Absolute Basophils (0.0-0.2) 10^3/uL 0.03
[2021-08-09 21:07] LABS: ALT 26 U/L (14-59); AST 15 U/L (15-37); Albumin 4.2 g/dL (3.4-5.0); Alkaline Phosphatase 75 U/L (46-116); Anion Gap 11.4 mmol/L (3-11); BUN 15 mg/dL (7-18); Bilirubin, Total 0.6 mg/dL (0.2-1.0); CO2 22.6 mmol/L (21.0-32.0); CREATININE 0.8 mg/dL (0.55-1.02); Calcium 9.3 mg/dL (8.5-10.1); Chloride 103 mmol/L (98-107); Glucose 98 mg/dL (74-106); Lipase 32 U/L (73-393); Sodium 137 mmol/L (136-145); Total Protein 8.4 g/dL (6.4-8.2)
[2021-08-09 22:32] LABS: Bilirubin Negative (Negative); Blood Trace-intact (Negative); Clarity Clear (Clear); Glucose Negative (Negative); Ketones 40 mg/dL (Negative); Leukocyte Esterase Negative (Negative); Nitrite Negative (Negative); Specific Gravity >= 1.030 (1.005-1.025); Urobilinogen 0.2 EU/dL (Up TO 0.2)
[2021-08-09 22:38] LABS: Bacteria Few HPF (Negative); C & S Indicated? Yes; Casts Negative LPF (Negative); Crystals Negative HPF (Negative); Epithelial Cells Few HPF (Negative); Mucus Moderate (Negative); RBC 0-2 HPF (0-2); WBC 0-2 HPF (0-5)
[2021-08-09] MEDS: Ondansetron O.D.T. 4 MG TABEF, 3 TABS/BTL PO (22:52)
[2021-08-11 11:53] LABS: COVID-19 RT-PCR UVMMC Result Negative (Negative)
--- NOTE | 2021-08-12 10:54 | NUR.NOTE ---
Negative Covid result given to pt. Verbalizes understanding. Pt asdked about a Urine culture result--Reviewed with Precious NOONAN--normal gavin. No treatmrent needed. Advised pt if urinary sx or fever develop return to er.Nursing Note:
== END 2021-08-09 23:00 | disposition home or self-care (01) ==
PROVIDERS: Emergency Provider Physician Assistant; PCP Nurse Practitioner Pediatrics
DX: R10.30 Lower abdominal pain, unspecified (principal); R11.2 Nausea with vomiting, unspecified; R55 Syncope and collapse; R42 Dizziness and giddiness; R19.7 Diarrhea, unspecified; Z86.16 Personal history of COVID-19
CPT/HCPCS: 80053; 81025; 83690; 93005; 96361; 96365; 96375; 99284; U0003; 81003; 81015; 85025; 87086; 93010; J0131; J1885; J2405

== ENCOUNTER 2022-06-04 17:33 | Emergency (ER) | payer MEDICAID, SELFPAY ==
[2022-06-04 17:45] VITALS: BP 131/63; PULSE 150; RESP 20; TEMP 38.8; O2SAT 96
[2022-06-04 19:05] LABS: COVID-19 PCR Negative (Negative); Influenza A PCR Positive (Negative); Influenza B PCR Negative (Negative); RSV PCR Negative (Negative)
[2022-06-04 19:06] LABS: Source Nasopharynx
[2022-06-04] MEDS: ACETAMINOPHEN 1,000 MG/100 ML BTL 400 MG IVPB (19:07)
[2022-06-04] MEDS: Normal Saline 1,000 ML 1000 ML IV (19:08)
[2022-06-04] MEDS: Ketorolac 30 MG/ML VIAL IVP (19:08)
[2022-06-04] MEDS: Ondansetron 4 MG/2 ML VIAL IVP (19:08)
[2022-06-04 19:09] VITALS: RESP 18
[2022-06-04 19:10] LABS: Abs Immature Grans 0.03 10^3/uL (0.0-0.06); Absolute Basophil Count 0.03 10^3/uL (0.0-0.2); Absolute Lymphocyte Count 0.47 10^3/uL (1.2-3.4); Absolute Monocyte Count 1.07 10^3/uL (0.1-0.8); Absolute Neutrophil Count 7.65 10^3/uL (1.2-6.7); Basophils % 0.3; HGB 12.5 g/dL (11.2-15.7); Immature Grans % 0.3; Lymphocytes % 5.1; MCH 29.3 pg (27.0-33.0); MCHC 32.9 % (32.0-36.0); MCV 89 fL (80-95); MPV 10.2 fL (8.0-11.0); Monocytes % 11.6; Neutrophils % 82.7; Platelet Count 228 10^3/uL (130-400); RBC 4.26 10^6/uL (3.93-5.22); RDW 12.2 % (11.7-14.6); RDW-SD 40.3 fL; WBC 9.25 10^3/uL (4.4-10.8)
[2022-06-04 19:25] LABS: ALT 58 U/L (14-59); AST 27 U/L (15-37); Albumin 3.5 g/dL (3.4-5.0); Alkaline Phosphatase 60 U/L (46-116); Anion Gap 11.3 mmol/L (3-11); BUN 8 mg/dL (7-18); Bilirubin, Total 0.3 mg/dL (0.2-1.0); CO2 23.7 mmol/L (21.0-32.0); CREATININE 0.8 mg/dL (0.55-1.02); Calcium 8.4 mg/dL (8.5-10.1); Chloride 99 mmol/L (98-107); Estimated GFR 106.77 (mL/min/1.73m2); Glucose 117 mg/dL (74-106); Magnesium 1.4 mg/dL (1.8-2.4); Potassium 3.5 mmol/L (3.5-5.1); Sodium 134 mmol/L (136-145); Total Protein 7.5 g/dL (6.4-8.2)
[2022-06-04] MEDS: Magnesium Oxide 400 MG TAB PO (19:54)
--- NOTE | 2022-06-04 20:50 | ED.GENADUL_ITS ---
Discharge Plan Disposition Patient Disposition: Home Condition: Stable Discharge Details Clinical Impression: Influenza A Primary Care Provider: Alysha Leigh ED Provider: Neville Sands Home Meds and New Rx's Prescriptions: Continued norgestimate-ethinyl estradiol [Sprintec (28)] 0.25-35 mg-mcg tablet 1 tab PO DAILY Qty: 84 4RF Discharge Instructions Instructions: Influenza (ED) Additional Instructions: During influenza infection it is very important that you get plenty of rest and stay well-hydrated. If you have any new or significant worsening of symptoms feel free to return the emergency department for reassessment otherwise if not improving in the next 7 to 10 days follow-up with your primary care provider for reassessment. Stand Alone Forms: Work Release Referrals: Alysha Leigh, GUARD CHIEF [Primary Care Provider] - 1 week (If not improving) Discharge Data Discharge Date/Time-TO BE ENTERED AT DEPARTURE: 06/04/22 21:33 Medical Decision Making Patient reports yesterday she started with cough, runny nose, and body aches along with headache. She has been taking [id number] medication along with inhaler last night for symptoms. Patient tested negative at home for COVID but is not vaccinated for influenza. Physical exam shows tachycardia, ill-appearing patient with fever like illness. Lung sounds are clear, HEENT exam is otherwise unremarkable. We will give patient antipyretics and fluids pending viral panel results. Patient is positive for influenza. Discussed possible use of Xofluza along with risk versus benefit. After this discussion patient agreeable to receiving this medication. Patient otherwise was recommended to stay well-hydrated, get plenty of rest. After discussion of diagnosis and plan of care patient has no further needs, questions, or concerns and states clear understanding to return to the emergency department for any worsening symptoms. This documentation was generated using bizsolation system, please disregard any oddities of phrase or misspellings. Sign Out No HPI General Mode of arrival: ambulatory . Date/Time Provider Initiated Documentation: 06/04/22 17:54 . Limitations to Documentation: no limitations . Information obtained by: patient and RN notes reviewed . History of Present Illness 21 year old F presents to the emergency department with the chief complaint of cold symptoms, described as moderate, with intensity rated at 8. Quality is described as aching, Patient started experiencing this day(s) (1) and it has been constant. No relieving factors improve symptom(s), No exacerbating factors reported . Patient did receive the following treatments prior to arrival, none Related Data Home Medications Medication Instructions Recorded Confirmed norgestimate 0.25 mg-ethinyl 1 tab PO DAILY #84 tabs 10/30/21 06/04/22 estradiol 35 mcg tablet (Sprintec (28)) Previous Rx's Medication Instructions Recorded norgestimate 0.25 mg-ethinyl 1 tab PO DAILY #84 tabs 10/30/21 estradiol 35 mcg tablet (Sprintec (28)) Allergies Allergy/AdvReac Type Severity Reaction Status Date / Time No Known Allergies Allergy Verified 06/04/22 17:49 General Stated Complaint: GenMedical JULIANNE: 3 Review of Systems Constitutional Constitutional: Reports body ache(s), Reports chills, Reports fever(s), Reports headache(s) and Reports malaise Eyes Eyes: Denies eye discharge ENT Ears, Nose, Mouth, and Throat: Reports as per HPI, Denies otalgia, Reports headache(s), Reports nasal congestion, Reports nasal discharge, Denies neck pain and Denies throat swelling Cardiovascular Cardiovascular: Denies chest pain and Denies dyspnea Respiratory Respiratory: Reports cough and Denies dyspnea Musculoskeletal Musculoskeletal: Denies joint swelling and Denies neck pain Integumentary/Breasts Skin/Breast: Denies rash Neurologic Neurologic: Reports headache(s) Allergic/Immunologic Allergic/Immunologic: Denies throat swelling PFSH All Active Problems (Updated 06/04/22 @ 21:18 by Neville Sands NP) Influenza A (Acute) Pain, dental (Acute) Dehydration (Acute) Excessive tearing (Chronic) Normal weight (Acute 11/10/14) Routine physical examination (Acute 02/12/12) Mild intermittent asthma, uncomplicated (Acute 08/21/16) exercise trigger Heart murmur (Acute 11/21/01) Still's murmur- nl EKG Headache (Acute 02/12/12) Encounter for Depo-Provera contraception (Acute 11/07/17) tolerating depo provera contraception may have next injection today then follow up 3 months Asthma (Acute 02/03/13) intermitent- triggers-exercise Medical History (Updated 06/04/22 @ 21:18 by Neville Sands NP) Fracture of fifth finger, left, closed Intermittent asthma triggers - exercise Migraine with aura Family History Other Essential hypertension paternal H/O blood clots PGM-from abd- caused stroke Diabetes PGM Heart disease paternal Hyperlipidemia paternal Mental disorder paternal-anxiety/depression Stroke PGM Asthma PGF Mother Migraines Mental disorder depression/anxiety Asthma outgrown Father Essential hypertension Substance abuse Heart disease Hyperlipidemia Mental disorder Depression/anxiety Myocardial infarction Asthma Social History Smoking/Tobacco Use Status: Never Smoking risk assessment performed?: Yes Alcohol Intake: current Alcohol Intake frequency: a few times a week Alcohol type: beer Drug use: Never Substance use type: does not use Adopted: No Foster care: No Do you feel safe at home: Yes Do you feel safe in your relationship?: Yes Female Reproductive History Menstrual control method: implanted (Nexplanon inserted by [employer] TIMMONS LAD=[id number] EXP=02/05/2021) Exam Const General: cooperative and ill appearing acutely Orientation: alert and awake [facility] Head: normal to inspection, normocephalic and atraumatic Ears: hearing grossly normal bilaterally and TM's normal bilaterally General nose exam: external nose normal Face and sinus: no erythema Mouth: oral mucosae normal, no drooling, no muffled voice and no trismus Throat: posterior oropharynx normal Neck Neck: normal visual inspection, full ROM, no lymphadenopathy, no meningeal signs, trachea midline and supple Resp Effort & Inspection: normal respiratory effort, able to speak in complete sentences and cough Quality of cough: dry Auscultation: clear to auscultation bilaterally Cardio Rate: tachycardic Rhythm: regular rhythm Heart Sounds: S1 normal, S2 normal, normal S1 and S2, no click, no gallops, no murmurs and no rubs Skin General skin exam: no rashes or lesions noted and dry skin (warm) Neuro General: patient alert, patient awake, patient oriented x3, gait normal and moves all extremities Cognition: normal cognition Speech: speech normal Course Vital Signs Vital signs: Vital Signs Temperature 38.8 C H 06/04/22 17:45 Pulse 150 H 06/04/22 17:45 Respiratory Rate 20 06/04/22 17:45 Blood Pressure 131/63 06/04/22 17:45 Pulse Oximetry 96 06/04/22 17:45 Temperature 38.8 C H 06/04/22 17:45 Temperature Source Oral 06/04/22 17:45 Pulse 150 H 06/04/22 17:45 Respiratory Rate 18 06/04/22 19:09 Respiratory Effort 06/04/22 19:09 Respiratory Depth Normal 06/04/22 19:09 Respiratory Pattern Normal 06/04/22 19:09 Blood Pressure 131/63 06/04/22 17:45 Blood Pressure Position Sitting 06/04/22 17:45 Pulse Oximetry 96 06/04/22 17:45 Oxygen Delivery Method Room Air 06/04/22 17:45 Oxygen Flow Rate 0 06/04/22 17:45 Pain Level 9 06/04/22 17:45 Lab/Test Results Lab/Test Results: Laboratory Tests Range/Units 06/04/22 06/04/22 06/04/22 18:20 19:00 19:00 WBC (4.4-10.8) 10^3/uL 9.25 RBC (3.93-5.22) 10^6/uL 4.26 Hgb (11.2-15.7) g/dL 12.5 Hct (36.0-46.0) % 38.0 MCV (80-95) fL 89 MCH (27.0-33.0) pg 29.3 MCHC (32.0-36.0) % 32.9 RDW (11.7-14.6) % 12.2 Plt Count (130-400) 10^3/uL 228 MPV (8.0-11.0) fL 10.2 Immature Gran % 0.3 Neutrophils % 82.7 Lymphocytes % 5.1 Monocytes % 11.6 Eosinophils % 0.0 Basophils % 0.3 Nucleated RBC % (0.0-0.3) % 0.0 Absolute Neutrophils (1.2-6.7) 10^3/uL 7.65 H Absolute Lymphocytes (1.2-3.4) 10^3/uL 0.47 L Absolute Monocytes (0.1-0.8) 10^3/uL 1.07 H Absolute Eosinophils (0.0-0.7) 10^3/uL 0.00 Absolute Basophils (0.0-0.2) 10^3/uL 0.03 Sodium (136-145) mmol/L 134 L Potassium (3.5-5.1) mmol/L 3.5 Chloride (98-107) mmol/L 99 Carbon Dioxide (21.0-32.0) mmol/L 23.7 Anion Gap (3-11) mmol/L 11.3 H BUN (7-18) mg/dL 8 Creatinine (0.55-1.02) mg/dL 0.8 Est GFR (CKD-EPI 2020) (mL/min/1.73m2) 106.77 Glucose (74-106) mg/dL 117 H Calcium (8.5-10.1) mg/dL 8.4 L Magnesium (1.8-2.4) mg/dL 1.4 L Total Bilirubin (0.2-1.0) mg/dL 0.3 AST (15-37) U/L 27 ALT (14-59) U/L 58 Alkaline Phosphatase (46-116) U/L 60 Total Protein (6.4-8.2) g/dL 7.5 Albumin (3.4-5.0) g/dL 3.5 COVID-19 Source Nasopharynx SARS-CoV-2 (PCR) (Negative) Negative Influenza Type A (PCR) (Negative) Positive A Influenza Type B (PCR) (Negative) Negative RSV (PCR) (Negative) Negative PAWSS Have you Been Recently Intoxicated or Drunk Within the Last 30 days?: No Have you Ever Experienced Previous Episodes of Alcohol Withdrawal?: No Have you ever Experienced Withdrawal Seizures?: No Have you ever Experienced Delirium Tremens(DT)s?: No Have you ever undergone Alcohol Rehabilitation Treatment (i.e, inpt ot outpatient treatment programs)?: No Have you ever Experienced Blackouts?: No Have you ever Combined Alcohol with other Downers within the last 90 days?: No Have you ever Combined Alcohol with any other Substance of Abuse during the last 90 days?: No Positive Blood Alcohol level on Presentation? [PCS.BAL]: No Evidence of Increased Autonomic Activity (i.e. HR>120, tremor, sweating, agitation, nausea)?: No Result: 0
[2022-06-04 21:31] VITALS: BP 116/68; PULSE 97; RESP 20; TEMP 37.1; O2SAT 98
== END 2022-06-04 21:33 | disposition home or self-care (01) ==
PROVIDERS: Physician Assistant; Emergency Provider Nurse Practitioner Family; PCP Nurse Practitioner Pediatrics
DX: J10.1 Influenza due to other identified influenza virus with other respiratory manifestations (principal); R00.0 Tachycardia, unspecified; J45.909 Unspecified asthma, uncomplicated; Z86.69 Personal history of other diseases of the nervous system and sense organs; Z20.822 Contact with and (suspected) exposure to COVID-19
CPT/HCPCS: 80053; 87637; 96361; 96374; 96375; 99284; 83735; 85025; J0131; J1885; J2405; J3490

== ENCOUNTER 2022-06-26 13:58 | Outpatient (CLI) | payer MEDICAID, SELFPAY ==
[2022-06-26 14:20] LABS: HCG Quant, Pregnancy 1 mIU/mL (1-3)
== END 2022-06-26 13:59 | disposition home or self-care (01) ==
LOC: LBO 14:01
PROVIDERS: PCP Nurse Practitioner Pediatrics; Visit Provider Nurse Practitioner Women's Health
DX: Z32.01 Encounter for pregnancy test, result positive (principal)
CPT/HCPCS: 36415; 84702

== ENCOUNTER 2023-09-25 11:59 | Outpatient (REF) | payer BC, SELFPAY | END 2023-09-25 12:00 | disposition home or self-care (01) | LOC: LBN 11:59 | PROVIDERS: PCP Nurse Practitioner Family; Visit Provider Nurse Practitioner Family | DX: R30.0 Dysuria (principal) | CPT/HCPCS: 87077; 87086; 87186 ==

== ENCOUNTER 2023-10-21 16:21 | Outpatient (REF) | payer BC, SELFPAY ==
[2023-10-21 21:13] LABS: Bilirubin Negative (Negative); Blood Trace-intact (Negative); Clarity Clear (Clear); Glucose Negative (Negative); Ketones Negative (Negative); Leukocyte Esterase Trace (Negative); Nitrite Negative (Negative); Urobilinogen 0.2 mg/dL (Up to 0.2); pH 7.5 (5-8)
[2023-10-21 21:26] LABS: RBC 0-2 HPF (0-2)
[2023-10-21 21:27] LABS: Bacteria Rare HPF (Negative); C & S Indicated? No; Casts Negative LPF (Negative); Crystals Negative HPF (Negative); Epithelial Cells Rare HPF (Negative); Mucus Negative (Negative)
== END 2023-10-21 16:22 | disposition home or self-care (01) ==
LOC: LBN 16:21
PROVIDERS: PCP Nurse Practitioner Family; Visit Provider Nurse Practitioner Family
DX: R39.89 Other symptoms and signs involving the genitourinary system (principal); R82.998 Other abnormal findings in urine
CPT/HCPCS: 81003; 81015

== ENCOUNTER 2024-02-06 05:29 | Emergency (ER) | payer BC, SELFPAY ==
[2024-02-06 05:32] VITALS: BP 125/79; PULSE 93; RESP 18; TEMP 36.7; O2SAT 99
--- NOTE | 2024-02-06 06:00 | W.ED.GENAD ---
Discharge Plan Disposition Patient Disposition: Home Condition: Good Discharge Details Clinical Impression: Acute right flank pain Primary Care Provider: Christian Blair ED Provider: Chilango Carr Home Meds and New Rx's Prescriptions: New ketorolac 10 mg tablet 10 mg PO TID 5 Days Qty: 15 0RF tamsulosin [Flomax] 0.4 mg capsule 0.4 mg PO DAILY Qty: 10 0RF No Action albuterol sulfate 90 mcg/actuation HFA aerosol inhaler 2 puff inhalation Q6H PRN Nexplanon 68 mg implant 1 implant subdermal ONCE Qty: 1 0RF Rx Instructions: as a single dose Discharge Instructions Instructions: Kidney Stone, Adult ED, Kidney stone diet Additional Instructions: At this time it is likely that you passed a small kidney stone. This is likely the cause of your symptoms. This should pass within the next 12 to 48 hours, if not earlier. Please drink plenty of fluids, 10 to 12 cups/day at least. If your pain returns please take the Toradol and Flomax as directed. This will help in expediting the passage of your kidney stone. If your pain stops, you can stop taking the Flomax. Please strain your urine to collect the stone. This can then be analyzed by your family doctor. If you do not have resolution of your symptoms after 48 to 72 hours please follow-up closely with your family doctor or return here for reassessment. If you notice any worsening of your symptoms, or any new symptoms such as inability to urinate, vomiting, diarrhea, fever, chills, shortness of breath, chest pain, numbness, weakness, or fainting , please return immediately to the emergency department for reevaluation. Please follow up with your primary care provider as soon as possible for reassessment and reevaluation. As always, it was a pleasure participating in your medical care today. Referrals: Christian Blair, SHANELLE [Primary Care Provider] - [facility] General Date/Time Provider Initiated Documentation: 02/06/24 05:30. HPI Narrative: This is a pleasant 23-year-old female with a past medical history of contraceptive use, asthma, previous kidney stone, who presents today for right flank pain. Patient states that at 4:30 AM she awoke with severe right-sided flank pain which was so bad it was causing nausea, shaking, and vomiting. Pain occurred while she was urinating at 4:30 AM. She laid down as the pain climaxed, and it gradually went away and was completely resolved by 5:10 AM. She was picked up by her mother and brought to the ER for further assessment. She still states that this time that she is completely pain-free and has no more symptoms. She denies fever. She denies chest pain. She does state that she is currently on her menstrual period. She denies any other complaints at this time. She states that this pain was worse than her last kidney stone. Additionally she states that her mother has had kidney stones and often presents similarly. Related Data Home Medications ?Medication ?Instructions ?Recorded ?Confirmed albuterol sulfate 90 mcg/actuation 2 puff inhalation Q6H PRN 06/26/22 02/06/24 aerosol inhaler etonogestrel 68 mg subdermal 1 implant subdermal ONCE #1 ea 07/03/22 02/06/24 implant (Nexplanon) ketorolac 10 mg tablet 10 mg PO TID 5 days #15 tabs 02/06/24 tamsulosin 0.4 mg capsule (Flomax) 0.4 mg PO DAILY #10 caps 02/06/24 Previous Rx's ?Medication ?Instructions ?Recorded etonogestrel 68 mg subdermal 1 implant subdermal ONCE #1 ea 07/03/22 implant (Nexplanon) ketorolac 10 mg tablet 10 mg PO TID 5 days #15 tabs 02/06/24 tamsulosin 0.4 mg capsule (Flomax) 0.4 mg PO DAILY #10 caps 02/06/24 Allergies Allergy/AdvReac Type Severity Reaction Status Date / Time No Known Allergies Allergy Verified 02/06/24 05:41 General Stated Complaint: Abd Prob JULIANNE: 4 Review of Systems All systems reviewed & are unremarkable except as noted in HPI and below Exam Narrative Exam Narrative: 1.Const: Well-nourished, Well-developed, appearing stated age 2.Eyes: PERRL, no conjunctival injection, and symmetrical lids. 3.ENT: Atraumatic external nose and ears. Moist MM. Neck: Symmetric, trachea midline, No thyromegaly. 4.CVS: +S1/S2, No murmurs or gallops. Peripheral pulses 2+ and equal in all extremities. Brisk capillary refill in all extremities. 5.RESP: Unlabored respiratory effort. Clear to auscultation bilaterally. No wheezes rales or rhonchi 6.GI: Soft, Nontender/Nondistended, No hepatosplenomegaly. No guarding or rebound. No flank or CVA tenderness. No pain at McBurney's point, negative Boykin sign 7.MSK: Normocephalic/Atraumatic, Extremities w/o deformity or ttp No cyanosis or clubbing, Normal movement of all extremities 8.Skin: Warm, Dry. No rashes or lesions. 9.Neuro: pathology technologist II-XII grossly intact. Sensation grossly intact, no focal neurologic deficits. 10.Psych: (AAO) x3. Appropriate mood and affect Course Vital Signs Vital signs: Vital Signs Temperature 36.7 C 02/06/24 05:32 Pulse 93 H 02/06/24 05:32 Respiratory Rate 18 02/06/24 05:32 Blood Pressure 125/79 02/06/24 05:32 Pulse Oximetry 99 02/06/24 05:32 Temperature 36.7 C 02/06/24 05:32 Temperature Source Skin 02/06/24 05:32 Pulse 93 H 02/06/24 05:32 Respiratory Rate 18 02/06/24 05:32 Respiratory Effort Normal 02/06/24 05:35 Blood Pressure 125/79 02/06/24 05:32 Blood Pressure Position Sitting 02/06/24 05:32 Pulse Oximetry 99 02/06/24 05:32 Oxygen Delivery Method Room Air 02/06/24 05:32 Oxygen Flow Rate 0 02/06/24 05:32 Lab/Test Results Lab/Test Results: POC- Test(urine) Negative Medical Decision Making This is a pleasant 23-year-old female with a past medical history of contraceptive use, asthma, previous kidney stone, who presents today for right flank pain. Patient states that at 4:30 AM she awoke with severe right-sided flank pain which was so bad it was causing nausea, shaking, and vomiting. Pain occurred while she was urinating at 4:30 AM. She laid down as the pain climaxed, and it gradually went away and was completely resolved by 5:10 AM. She was picked up by her mother and brought to the ER for further assessment. She still states that this time that she is completely pain-free and has no more symptoms. She denies fever. She denies chest pain. She does state that she is currently on her menstrual period. She denies any other complaints at this time. She states that this pain was worse than her last kidney stone. Additionally she states that her mother has had kidney stones and often presents similarly. Exam demonstrates a very well-appearing female, no pain at McBurney's point, negative flank or CVA tenderness. Negative Rovsing sign. Negative Boykin sign. Patient looks notably clinically well. Urinalysis will likely show blood secondary to her menstrual cycle, however we will evaluate for evidence of infection. We will give Flomax and ketorolac orally here. Will monitor closely and reassess. Symptoms appear clinically inconsistent at this time for appendicitis with no right lower quadrant or reproducible abdominal tenderness. Symptoms inconsistent with ovarian torsion. Symptoms inconsistent with tubo-ovarian abscess. 6:30 AM After an extended period of observation the patient continues to remain totally pain-free. She feels well and would like to go home. Urine shows no evidence of infection, there is some mild blood, which is not surprising. Suspect that she has had a passed kidney stone. Repeat abdominal exam shows no signs of acute abdominal tenderness whatsoever, no right lower quadrant tenderness or other abnormalities. Patient feels well and is requesting discharge. Will give Flomax and Toradol for home use in case her symptoms do return. Discussed red flags for which to return. Symptoms inconsistent with appendicitis, ovarian torsion, tubo-ovarian abscess, diverticulitis, or other acute surgical abdominal pathology. I have extensively reviewed the treatment plan and discharge instructions with the patient and their family. I have addressed all patient concerns at this time. The patient and family was made aware of what symptoms to monitor for that would warrant a return to the emergency department. Discussed the plan with the patient and family, they demonstrate verbal understanding and agreement with our assessment and plan at this time. The documentation in this chart was dictated using [employer] dictation software. Please excuse any dictation errors. Quality:SDOH Health Related Social Needs: Health related social needs risk of homeless Health related social needs details N/A PFSH All Active Problems (Updated 02/06/24 @ 06:28 by Chilango Carr DO) Acute right flank pain (Acute) ADHD (Acute) Hyperglycemia (Acute) Anxiety and depression (Chronic) Presence of subdermal contraceptive implant (Acute 07/03/22) Routine physical examination (Acute 02/12/12) Mild intermittent asthma, uncomplicated (Acute 08/21/16) exercise trigger Heart murmur (Acute 11/21/01) Still's murmur- nl EKG Medical History Dehydration Pain, dental Excessive tearing Normal weight (11/10/14) Headache (02/12/12) Asthma (02/03/13) intermitent- triggers-exercise Intermittent asthma triggers - exercise Fracture of fifth finger, left, closed Migraine with aura Family History Mother Migraines Mental disorder depression/anxiety Asthma outgrown Father Essential hypertension Substance abuse Heart disease Hyperlipidemia Mental disorder Depression/anxiety Myocardial infarction Asthma Alcohol use disorder Brother Alcohol use disorder Substance abuse Maternal Grandmother Alcohol use disorder Paternal Grandmother Diabetes Heart disease Paternal Grandfather No problems noted. 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[employer] Pets and animals: Yes Pets and animals: dog(s) Sexually active: Yes Do you think of yourself as: straight/heterosexual Current gender identity: female What is your relationship status?: never How often do you talk on the phone with friends or family?: three or more times per week How often do you get together with friends or relatives?: once per week How often do you attend episcopalian or confucianism services?: decline to answer Do you belong to any clubs or organized social groups?: no Panel score (0-1 are the most socially isolated patients): 1 What type of physical activity do you participate in: walking Frequency: 3-4 times per week Shelby/Adventism: Non jehovah's witness Special shelby needs: No Seatbelt use: sometimes Helmet use: Yes Helmet use: always Drive intox or ride w/intox local delivery driver: No Firearms in home: Yes Firearms unloaded and locked: Yes Do you feel safe at home: Yes Do you feel safe in your relationship?: Yes Victim of physical abuse: No Victim of emotional abuse: No Victim of sexual abuse: No Would you like helpful sources: No Female Reproductive History Menstrual control method: implanted History History 0 Para Hx # Term Pregnancies Multiple births Hx # Pregnancies Ectopic pregnancies AB induced Hx Number of Living Children AB spontaneous
[2024-02-06 06:06] LABS: Bilirubin Negative (Negative); Blood Moderate (Negative); Clarity Sl Cloudy (Clear); Glucose Negative (Negative); Ketones Trace mg/dL (Negative); Leukocyte Esterase Negative (Negative); Nitrite Negative (Negative); Specific Gravity >= 1.030 (1.005-1.025); Urobilinogen 0.2 mg/dL (Up to 0.2)
[2024-02-06] MEDS: Ketorolac 10 MG TAB PO (06:11)
[2024-02-06] MEDS: Tamsulosin 0.4 MG CAPCR PO (06:11)
[2024-02-06 06:18] LABS: Bacteria Negative HPF (Negative); Crystals Negative HPF (Negative); Epithelial Cells Few HPF (Negative); Other Cells Rare Renal (Negative); WBC 0-2 HPF (0-5)
[2024-02-06 06:19] LABS: C & S Indicated? No; Casts Negative LPF (Negative); Mucus Trace (Negative)
== END 2024-02-06 06:35 | disposition home or self-care (01) ==
LOC: ER 06:37
PROVIDERS: Emergency Provider Student in an Organized Health Care Education/Training Program; PCP Nurse Practitioner Family
DX: R10.31 Right lower quadrant pain (principal); R10.11 Right upper quadrant pain
CPT/HCPCS: 81025; 99283; 81003; 81015

== ENCOUNTER 2024-03-05 21:29 | Outpatient (REF) | payer BC, SELFPAY ==
[2024-03-05 21:49] LABS: Bilirubin Negative (Negative); Blood Negative (Negative); Clarity Sl Cloudy (Clear); Glucose Negative (Negative); Ketones Negative (Negative); Leukocyte Esterase Trace (Negative); Nitrite Negative (Negative); Specific Gravity >= 1.030 (1.005-1.025); Urobilinogen 0.2 mg/dL (Up to 0.2)
[2024-03-05 22:08] LABS: Bacteria Rare HPF (Negative); C & S Indicated? No; Casts Negative LPF (Negative); Crystals Many Amorphous HPF (Negative); Epithelial Cells Rare HPF (Negative); Mucus Negative (Negative); RBC Negative HPF (0-2)
== END 2024-03-05 21:30 | disposition home or self-care (01) ==
LOC: LBN 21:29
PROVIDERS: PCP Nurse Practitioner Family; Visit Provider Nurse Practitioner Family
DX: R30.0 Dysuria (principal)
CPT/HCPCS: 81003; 81015

== ENCOUNTER 2024-03-07 10:04 | Outpatient (REF) | payer BC, SELFPAY ==
--- OUTSIDE RECORDS SUMMARY | 2024-03-07 10:05 | XMS_ITS | Referral Summary ---
Author Organization [facility] Address [address] [place] [address] Care Team Providers Care Peoples[employer] Hcm Developer Name Role Phone Unavailable Primary Care Provider Unavailabl e Social History Tobacco Use Types Packs/Day Years Used Date Smoking Tobacco: Never Assessed Sex and Gender Information Value Date Recorded Sex Assigned at Not on file Gender Identity Not on file Sexual Orientation Not on file Plan of Treatment Not on file
--- OUTSIDE RECORDS SUMMARY | 2024-03-07 10:05 | XMS_ITS | Encounter Summary ---
Author Organization [facility] Address [address] [place] [address] Care Team Providers Care Group Marketing Vp Name Role Phone Unavailable Primary Care Provider Unavailabl e Encounter Details Date Type Department Care Team (Late st Contact Info) Description 08/09/2021 Lab Requisition [facility] Pathology & Laboratory Medicine - [facility] [address] [place] [address] Outr Resulting Lab, Provider Social History Tobacco Use Types Packs/Day Years Used Date Smoking Tobacco: Never Assessed Sex and Gender Information Value Date Recorded Sex Assigned at Not on file Gender Identity Not on file Sexual Orientation Not on file documented as of this encounter Plan of Treatment Not on file documented as of this encounter Procedures Procedure Name Priority Date/Time Associated Diagnosis Comments ZZCOVID-19 TEST [facility] PCR Today 08/09/2021 20:33 EST COVID-19 TESTING Routine 08/09/2021 20:3 3 EST documented in this encounter Results * COVID-19 TEST [facility] PCR (08/09/2021 20:33 EST) Swab 08/09/2021 20:3 3 EST 08/10/2021 21:15 EST Provider Outr Resulting Lab MICROBIOLOGY - GENERAL ORDERABLES [facility] [address] [place] [address] * COVID-19 TESTING (08/09/2021 20:33 EST) COVID-19 rt-PCR Result Negative Negative 08/11/2021 11:48 EST [facility] Comment: This test has not been FDA cleared or approved. This test has been authorized by FDA under an EUA for use by authorized laboratories. This test has been authorized only for detection of nucleic acid from 2019-nCoV, not for any other viruses or pathogens. This test is only authorized for the duration of the declaration that circumstances exist justifying the authorization of emergency use of in vitro diagnostic tests for detection and/or diagnosis of 2019-nCoV under section 564(b)(1) of Act, 21 U.S.C ?? 360bbb-3(b) (1), unless the authorization is terminated or revoked sooner. Negative results do not preclude 2019-nCoV infection and should not be used as the sole basis for treatment or other patient management decisions. Negative results must be combined with clinical observations, patient history, and epidemiological information. Testing was performed using the jessica SARS-CoV-2 assay ([employer] on the Jessica 6800 System Performing Lab Jessica [address] [facility] 08/11/2021 11:48 EST [facility] Swab 08/09/2021 20:3 3 EST 08/10/2021 21:15 EST Provider Outr Resulting Lab MICROBIOLOGY - GENERAL ORDERABLES [facility] [address] [place] [address] documented in this encounter Visit Diagnoses Not on filedocumented in this encounter
--- OUTSIDE RECORDS SUMMARY | 2024-03-07 10:05 | XMS_ITS | Clinical Summary ---
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
[2024-03-09 12:41] LABS: Chlamydia Result Negative (Negative); GC Result Negative (Negative)
== END 2024-03-07 10:05 | disposition home or self-care (01) ==
LOC: LBN 10:04
PROVIDERS: PCP Nurse Practitioner Family; Visit Provider Nurse Practitioner Family
DX: R10.2 Pelvic and perineal pain (principal); N89.8 Other specified noninflammatory disorders of vagina
CPT/HCPCS: 87491; 87591

== ENCOUNTER 2024-05-14 11:01 | Outpatient (REF) | payer BC, SELFPAY | END 2024-05-14 11:02 | disposition home or self-care (01) | LOC: LBN 11:01 | PROVIDERS: PCP Nurse Practitioner Family; Visit Provider Nurse Practitioner Family | DX: N39.0 Urinary tract infection, site not specified (principal) | CPT/HCPCS: 87077; 87086; 87186 ==

== ENCOUNTER 2024-12-07 18:21 | Outpatient (REF) | payer BC, SELFPAY ==
--- NOTE | 2024-12-07 14:30 | PAPFT_PTH ---
PATIENT: Yony Chacko LOC: [facility] U#:[id number] AGE/SX: 24/F ROOM: RE12/07/[address]: Christian Avila DNP : 2000 BED: DIS: 12/07/2024 SPEC #: [id number] RECD: 12/08/24 12:53 STATUS: KANE REJoan #: [id number] ERNIE: 12/07/24 14:[address]: Christian Blair DEPT: [facility] Cytology RECD BY: Kori Thomas Tissues: 1 - CX/ENDOCX FOR PAP SMEARS Procedures: PAP THIN PREP/[facility] Screening Comments: [id number]
== END 2024-12-07 18:22 | disposition home or self-care (01) ==
LOC: LBN 18:21
PROVIDERS: PCP Nurse Practitioner Family; Visit Provider Nurse Practitioner Family
DX: Z12.4 Encounter for screening for malignant neoplasm of cervix (principal)
CPT/HCPCS: 88142